=== PATIENT | female | born 1955 | race African-American/Black ===

== ENCOUNTER 2022-06-08 14:41 | Outpatient (CLI) | payer MEDICARE, MEDICAID | END 2022-06-08 14:42 | disposition home or self-care (01) | LOC: SCSRAD 14:41 | PROVIDERS: ATTEND Family Medicine | DX: M25.552 Pain in left hip (principal); M47.818 Spondylosis without myelopathy or radiculopathy, sacral and sacrococcygeal region; M16.12 Unilateral primary osteoarthritis, left hip ==

== ENCOUNTER 2024-01-16 08:34 | Outpatient (CLI) | payer OTHER | END 2024-01-16 08:35 | disposition home or self-care (01) | LOC: SCSMRI 08:34 | PROVIDERS: ATTEND Internal Medicine Gastroenterology | DX: K86.2 Cyst of pancreas (principal); K59.00 Constipation, unspecified; K21.9 Gastro-esophageal reflux disease without esophagitis; N28.1 Cyst of kidney, acquired | CPT/HCPCS: 74183; 82565 ==